=== PATIENT | female | born 1945 | race Caucasian/White ===

== ENCOUNTER 2023-10-06 07:16 | Emergency (ER) | payer MEDICARE ==
[2023-10-06] MEDS: Lactated Ringers 1,000 ML IV ONE (07:30)
[2023-10-06 07:40] LABS: BASOPHILS ABSOLUTE AUTO 0.02 K/uL (0.00-0.20); BASOPHILS PERCENT AUTO 0.1 % (0.0-2.0); LYMPHOCYTES ABSOLUTE AUTO 1.39 K/uL (0.50-3.50); LYMPHOCYTES PERCENT AUTO 10.2 % (10.0-50.0); MEAN CORPUSCULAR HEMOGLOBIN 29.4 pg (28.2-33.3); MEAN CORPUSCULAR HGB CONC 31.8 g/dL (31.7-36.0); MEAN CORPUSCULAR VOLUME 92.5 fL (84.0-98.0); MONOCYTES ABSOLUTE AUTO 0.75 K/uL (0.00-1.00); MONOCYTES PERCENT AUTO 5.5 % (2.0-14.0); NEUTROPHILS PERCENT AUTO 84.2 % (45.0-80.0); PLATELET COUNT,PLT 57 K/uL (150-350); RED BLOOD CELL COUNT 1.87 M/uL (3.77-5.09); RED CELL DISTRIBUTION WIDTH 17.4 % (11.2-14.1); WHITE BLOOD CELL COUNT,WBC 13.7 K/uL (4.0-10.2)
[2023-10-06 07:43] LABS: HEMATOCRIT 17.3 % (34.0-46.0); HEMOGLOBIN 5.5 g/dL (11.7-15.5)
[2023-10-06 08:10] LABS: ALANINE AMINOTRANSFERASE,ALT 29 U/L (12-78); ALBUMIN 2.2 g/dL (3.4-5.0); ALKALINE PHOSPHATASE 30 IU/L (46-116); ASPARTATE AMNIOTRANSFERASE,AST 15 U/L (15-37); BILIRUBIN TOTAL 0.2 mg/dL (0.2-1.0); CALCIUM 7.5 mg/dL (8.5-10.1); CHLORIDE,CL 109 mmol/L (98-107); GLUCOSE RANDOM 296 mg/dL (70-99); MAGNESIUM 1.8 mg/dL (1.8-2.4); POTASSIUM,K 3.5 mmol/L (3.5-5.1); PROTEIN TOTAL,TP 4.2 g/dL (6.4-8.2); SODIUM,NA 139 mmol/L (136-145)
[2023-10-06 08:18] LABS: ANION GAP 24.1 meq/L (7-15); ESTIMATED GFR 17 mL/min (>=60)
[2023-10-06 08:19] LABS: BLOOD UREA NITROGEN,BUN 114 mg/dL (7-18); CARBON DIOXIDE,CO2 9.4 mmol/L (21.0-32.0)
[2023-10-06 08:24] LABS: INR 1.1 (0.9-1.1); PROTHROMBIN TIME 11.1 SEC (9.0-11.1)
[2023-10-06] MEDS: Sodium Chloride 0.9% 250 ML IV SCH (08:28)
[2023-10-06] MEDS: Pantoprazole 40 MG Vial IVPUSH ONE (08:28)
== END 2023-10-06 09:21 ==
LOC: LL.ED 07:16
DX: K92.2 Gastrointestinal hemorrhage, unspecified (principal); Z88.6 Allergy status to analgesic agent
CPT/HCPCS: 36415; 36430; 74019; 80053; 83605; 83735; 85025; 85610; 86850; 86900; 86901; 86920; 86922; 96361; 96374; 99285-25; C9113; J7050; J7120; P9016